=== PATIENT | male | born 1955 | race American Indian/Alaskan Native ===

== ENCOUNTER 2019-07-24 16:35 | Emergency (ER) | payer MEDICARE ==
[2019-07-24 16:44] VITALS: BP 130/72
--- NOTE | 2019-07-24 17:44 | Event Note ---
ED Screening Note Date of service: 07/24/19 Time: 17:42 ED Screening Note: This is a 64 y.o. M. that presents to the ER with right shoulder pain. Patient states he was working in the yard when he felt a pop and decreased ROM about 1.5 hours. This initial assessment/diagnostic orders/clinical plan/treatment(s) is/are subject to change based on patients health status, clinical progression and re- assessment by fellow clinical providers in the ED. Further treatment and workup at subsequent clinical providers discretion. Patient/guardian urged not to elope from the ED as their condition may be serious if not clinically assessed and managed. Initial orders include: XR right shoulder
--- NOTE | 2019-07-24 18:26 | XRay Report ---
RIGHT SHOULDER 3 VIEWS INDICATION: MAIN: ac joint pain, r/o dislocation PT SD HE TRIED TO MOVE A LOG AND SAW A SNAKE. HE TRIED TO SCUR RY IT OUT OF THE WAY AND PULLED HIS SHOULDER TDY..JTS. COMPARISON: No relevant prior imaging study available. FINDINGS: No acute, displaced fracture or dislocation is seen. There is moderate right acromioclavicular degene rative change. IMPRESSION: 1. No acute findings. Signer Name: Rowdy Lamar MD Signed: 07/24/2019 6:21 PM Workstation Name: [id number]
[2019-07-24] MEDS ORDERED: TORADOL IM STA (21:05)
--- NOTE | 2019-07-24 21:26 | Emergency Department Report ---
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 He spits for too vigorously raised the lock up the wall didn't broken half causing all of his force to cause the shoulder to rotate internally causing a burning pain in the clicking sensation. He reports pain with various range of motion and palpation, worse with with rotation was worried about the shoulder been out of socket.) Severity: moderate Symptoms: Yes Pain with Movement, Yes Limited Range of Movement, No Numbness, No Swelling, No Bruising/Ecchymosis, No Laceration or Abrasion ED Review of Systems ROS: Stated complaint: RT SHOULDER POSS SOCKET OUT/PAIN Other details as noted in HPI Comment: All other systems reviewed and negative ED Past Medical Hx - Past Medical History Previous Medical History?: Yes Hx Hypertension: Yes Additional medical history: right shoulder injury - Surgical History Past Surgical History?: No - Social History Smoking Status: Current Every Day Smoker Substance Use Type: Alcohol - Medications Home Medications: Home Medications Medication Instructions Recorded Confirmed Last Taken Type Ketorolac [Toradol] 10 mg PO Q6H PRN #14 tablet 07/24/19 Unknown Rx Upper Extremity Exam - Exam General: Vital signs noted. No distress. Alert and acting appropriately. Head and Torso: No HEENT Abnormality, No Neck Tenderness, No Chest/Lungs Abnormality, No Abdominal Tenderness, No Back Tenderness Shoulder Exam: Yes Shoulder Tenderness (pain with Barraza test pain with with [place] status. No sulcus sign. Joint is stable. No deformity.), Yes Normal Range of Motion in Shoulder, No Clavicle Tenderness, No Shoulder Deformity, No AC Joint Tenderness Arm Exam: No Arm/Humerus Tenderness, No Arm Deformity Elbow: No Elbow Tenderness, No Normal Range of Motion in Elbow, No Elbow Deformity Forearm: No Forearm Tenderness, No Forearm Deformity, No Pain with Pronation, No Pain with Supination Wrist: Yes Normal ROM in Wrist, No Wrist Tenderness, No Wrist Deformity, No Snuffbox Tenderness, No Pain with Axial Thumb Compression Hand: Yes Normal ROM in Digit(s), No Hand Tenderness, No Hand Deformity, No Digit Tenderness, No Digit(s) Deformity, No Tendon Dysfunction CMS Exam: No Broken Skin, No Normal Distal Pulses, No Normal Capillary Refill, No Normal Distal Sensation ED Course Vital Signs 07/24/19 16:40 Temperature 97.3 F L Pulse Rate 78 Respiratory 20 Rate Blood Pressure 130/72 O2 Sat by Pulse 95 Oximetry ED Medical Decision Making - Radiology Data Radiology results: report reviewed (x-ray showed no acute processes) - Medical Decision Making 64-year-old male out doing yardwork was lifting a long causing an injury to his shoulder, which looks to be suggestive of a strain versus a labrum type tear. Critical care attestation.: If time is entered above; I have spent that time in minutes in the direct care of this critically ill patient, excluding procedure time. ED Disposition Clinical Impression: Shoulder pain, right Disposition: [id number] TO HOME OR SELFCARE Is pt being admited?: No Does the pt Need Aspirin: No Condition: Stable Instructions: Shoulder Sprain (ED), Rotator Cuff Tendinitis (ED), Rotator Cuff Injury (ED), Magnetic Resonance Imaging (ED) Prescriptions: Ketorolac [Toradol] 10 mg PO Q6H PRN #14 tablet PRN Reason: Pain Referrals: CHANELLE ARRINGTON MD [Primary Care Provider] - 3-5 Days FRANKIE QUEEN MD [Staff Physician] - 3-5 Days
== END 2019-07-24 21:35 | disposition home or self-care (01) ==
LOC: ED 16:35
DX: M25.511 Pain in right shoulder (principal); I10 Essential (primary) hypertension; F17.200 Nicotine dependence, unspecified, uncomplicated
CPT/HCPCS: 73030; 96372; 99283; J1885